=== PATIENT | female | born 1975 | race Caucasian/White ===

== ENCOUNTER 2016-10-16 06:13 | Inpatient (IN) | payer OTHER ==
[2016-10-14 10:52] LABS: MANUAL DIFF NEEDED? NO; URINE SOURCE VOIDED
[2016-10-14 12:01] LABS: BILIRUBIN URINE NEGATIVE (NEGATIVE); BLOOD URINE NEGATIVE (NEGATIVE); CLARITY SL. CLOUDY (CLEAR); COLOR YELLOW; GLUCOSE URINE NEGATIVE (NEGATIVE); LEUKOCYTES URINE 1+ (NEGATIVE); NITRITE URINE NEGATIVE (NEGATIVE); PROTEIN URINE TRACE mg/dL (NEGATIVE); URINE MICROSCOPIC NEEDED? YES; UROBILINOGEN URINE 4+(12 mg/dL)
[2016-10-14 12:30] LABS: URINE EPITHELIAL CELLS >10 /HPF (<10); URINE RBC <10 /HPF (<10)
[2016-10-14 12:51] LABS: BASO% 0.5 % (0.0-0.8); EOS# 0.11 X1000 (0.0-0.7); EOS% 1.4 % (0.0-10.0); HEMATOCRIT 41.9 % (37.0-47.0); HEMOGLOBIN 14.7 g/dL (12.0-16.0); IMM GRAN# 0.02 X1000 (0.0-0.04); IMM GRAN% 0.3 % (0.0-0.5); LYMPH# 2.11 X1000 (1.2-3.4); LYMPH% 26.7 % (20.5-51.1); MCH 32.5 PG (27-31); MCHC 35.1 g/dL (33-37); MCV 92.7 FL (81-99); MONO# 0.75 X1000 (0.11-0.59); MONO% 9.5 % (1.7-9.3); MPV 10.2 FL (7.4-10.4); NEUT% 61.6 % (42.2-75.2); PLT 248 X1000 (130-400); RBC 4.52 XMIL (4.2-5.4)
--- NOTE | 2016-10-15 10:34 | HISTORY AND PHYSICAL ---
ADMITTING PHYSICIAN: Jason Wright MD. ADMITTING DIAGNOSIS: Dysfunctional uterine bleeding with dysmenorrhea and menorrhagia. SUMMARY: Adriana Mayers is a 41-year-old, 5, para 4-0-1-4, who states she has menstrual cycles every 2 weeks. They are heavy and she passes clots. They will last 2 to 4 days and then stop. She states that they have always been irregular but her periods have become worse over the last 2 to 3 months. She is also having cramps with her periods. After discussing options with the patient, she is being admitted for a laparoscopic assisted vaginal hysterectomy. PAST MEDICAL HISTORY: Patient has had 4 vaginal deliveries. She has had abnormal Pap smears in the past and has had two LEEP procedures. She has had a tubal sterilization. Otherwise, there are no chronic medical or surgical illnesses. CURRENT MEDICATIONS: None. ALLERGIES: None. PHYSICAL EXAMINATION: VITAL SIGNS: Her weight is 104, blood pressure 110/70. CARDIOVASCULAR: Regular rate and rhythm. No murmurs, rubs, gallops. PULMONARY: Clear. BREASTS: No masses. ABDOMEN: Tender without rebound, rigidity, or guarding. PELVIC: Examination shows normal external genitalia. The uterus is slightly enlarged. There are no adnexal masses. EXTREMITIES: No clubbing, edema, or cyanosis. DIAGNOSTIC DATA: Most recent Pap smear was read as normal. IMPRESSION: Dysfunction uterine bleeding with dysmenorrhea and menorrhagia. PLAN: We will proceed with a laparoscopic assisted vaginal hysterectomy. Risks of the surgery including pain, bleeding, infection, bowel or bladder injury, and anesthesia complications have been discussed. Alternatives to this surgery including endometrial ablation have been discussed. I do not feel she is a candidate for control pills as she is 41 and a smoker. The patient's questions were answered and she freely consents to this operation.
[2016-10-16] MEDS ORDERED: VERSED ONE ×2 (06:30→09:47)
[2016-10-16] MEDS ORDERED: LR 1,000 ML ONE ×3 (06:30→10:52)
[2016-10-16] MEDS ORDERED: DIPRIVAN 1% ONE (06:30)
[2016-10-16] MEDS ORDERED: FENTANYL ONE (06:30)
[2016-10-16] MEDS ORDERED: LR 0 ML ONE ×2 (06:38→06:54)
[2016-10-16] MEDS ORDERED: PEPCID ONE (06:53)
[2016-10-16] MEDS ORDERED: REGLAN ONE (06:53)
[2016-10-16] MEDS ORDERED: SODIUM CHLORIDE 0.9% 10 ML ONE (06:54)
[2016-10-16] MEDS ORDERED: KEFZOL 1 GM/D5W 50 ML ONE (08:51)
[2016-10-16] MEDS ORDERED: SENSORCAINE 0.25%/EPI 1:200,000 ONE (08:51)
[2016-10-16] MEDS ORDERED: CLAVE SECONDARY SET 11953 ONE (08:51)
[2016-10-16 09:39] LABS: URINE MICROSCOPIC NEEDED? NO; URINE SOURCE CATH
[2016-10-16 09:45] LABS: BILIRUBIN URINE NEGATIVE (NEGATIVE); BLOOD URINE NEGATIVE (NEGATIVE); CLARITY CLEAR (CLEAR); COLOR YELLOW; GLUCOSE URINE NEGATIVE (NEGATIVE); LEUKOCYTES URINE NEGATIVE (NEGATIVE); NITRITE URINE NEGATIVE (NEGATIVE); PROTEIN URINE NEGATIVE (NEGATIVE); UROBILINOGEN URINE NORMAL
[2016-10-16] MEDS ORDERED: BREVIBLOC ONE (09:46)
[2016-10-16] MEDS ORDERED: NEO-SYNEPHRINE ONE (09:47)
[2016-10-16] MEDS ORDERED: DULCOLAX PR PRN (10:28)
[2016-10-16] MEDS ORDERED: ZOFRAN IV PRN ×2 (10:28→16:07)
[2016-10-16] MEDS ORDERED: AMBIEN PO PRN (10:28)
[2016-10-16] MEDS ORDERED: NORCO-10 PO PRN (10:28)
[2016-10-16] MEDS ORDERED: ZOFRAN ODT PO PRN (10:28)
[2016-10-16] MEDS ORDERED: FLEET ENEMA PR PRN (10:28)
[2016-10-16] MEDS ORDERED: LEVSIN-SL SL PRN (10:28)
[2016-10-16] MEDS ORDERED: NORCO-5 PO PRN (10:28)
[2016-10-16] MEDS ORDERED: DILAUDID PCA VIAL ONE (10:52)
[2016-10-16] MEDS: DILAUDID ONE ×2 (11:01→11:12)
--- NOTE | 2016-10-16 11:15 | OPERATIVE NOTE ---
PROCEDURE DATE: 10/16/2016 SURGEON: Jason Wright MD [employer] OPERATOR: Jason Velazquez MD ANESTHESIA: General endotracheal. OPERATION PERFORMED: Laparoscopic-assisted vaginal hysterectomy. PREOPERATIVE DIAGNOSIS: Dysfunctional uterine bleeding with dysmenorrhea and menorrhagia. POSTOPERATIVE DIAGNOSIS: Dysfunctional uterine bleeding with dysmenorrhea and menorrhagia. FINDINGS: Grossly normal anatomy. DESCRIPTION OF PROCEDURE: The patient was taken back to the operating room and, after general endotracheal anesthesia, placed in dorsal lithotomy position. The vagina, perineum, and abdomen were prepped and draped in the usual fashion. A Roman catheter was placed in the urinary bladder. A periumbilical incision was made. Through this, a Veress needle was inserted. A pneumoperitoneum was created. A laparoscopic trocar was introduced without difficulty. Initial laparoscopic examination revealed no apparent blood vessel or bowel injury. We then placed 5 mm ports in the left and right pelvis. The uterus was identified. We made the decision to remove the fallopian tube remnants. We used the Gyrus forceps to grasp, cauterize, and incise the distal portion of both fallopian tubes. We then began her surgery by grasping, cauterizing, and excising the round ligament and then the broad ligament on the left side. A bladder flap was created with the LigaSure device and the uterine vessels were cauterized. The same procedure was then repeated on the patient's right side, where 1st the round ligament and then broad ligament were grasped, cauterized, and excised with the LigaSure device. The bladder flap was further created and the uterine vessels on the right side were cauterized. We then removed all laparoscopic equipment and left the trocars in place. A weighted speculum was placed in the posterior vaginal vault. The cervix was grasped with a tenaculum. The anterior reflection of the vaginal mucosa was infiltrated with Xylocaine and epinephrine solution. Anterior colporrhaphy was performed. This was taken down to the endopelvic fascia and, using blunt and sharp dissection, the bladder was dissected off the lower uterine segment and cervix. The peritoneum was then entered. The fundus of the uterus was then flipped through the anterior colporrhaphy. The cardinal and uterosacral ligaments bilaterally were clamped, incised, and ligated. The posterior vaginal vault was clamped, excised, and ligated. The uterus and cervix were thus removed. Angle stitches were placed bilaterally. The cuff was then run using interlocking 0 Vicryl suture. The peritoneum was closed in a pursestring fashion. The vaginal cuff was reapproximated using interrupted Vicryl sutures. We regloved and then reestablished a pneumoperitoneum. Laparoscopic examination revealed no bleeding. All laparoscopic equipment was removed. The trocars were removed. The pneumoperitoneum was relieved. The laparoscopic incisions were oversewn using Vicryl suture and then infiltrated with 0.25% Marcaine. The patient was extubated and went to the recovery room in stable condition with estimated blood loss of 100 mL.
[2016-10-16] MEDS ORDERED: LASIX ONE (11:52)
[2016-10-16] MEDS ORDERED: DILAUDID PCA VIAL IV PRN (16:07)
[2016-10-16] MEDS ORDERED: NARCAN IV PRN (16:07)
[2016-10-16] MEDS: MYLICON PO SCH ×2 (16:13→20:22)
[2016-10-16] MEDS: TORADOL IV SCH ×2 (16:13→22:16)
[2016-10-16] MEDS: OFIRMEV 1000 MG/ISOTONIC SOLN 100 ML IV SCH (16:15)
[2016-10-16 16:16] LABS: HEMATOCRIT 38.6 % (37.0-47.0); HEMOGLOBIN 13.3 g/dL (12.0-16.0)
[2016-10-16] MEDS ORDERED: ZOFRAN ONE (17:21)
[2016-10-16] MEDS ORDERED: ZEMURON ONE (17:21)
[2016-10-16] MEDS ORDERED: NEOSTIGMINE ONE (17:21)
[2016-10-16] MEDS ORDERED: ROBINUL ONE (17:21)
[2016-10-16] MEDS ORDERED: DECADRON ONE (17:21)
[2016-10-16] MEDS ORDERED: QUELICIN (DOSE) ONE (17:21)
[2016-10-16] MEDS ORDERED: TORADOL ONE (17:21)
[2016-10-16] MEDS ORDERED: XYLOCAINE-MPF 2% ONE (17:21)
[2016-10-16] MEDS: LR 1,000 ML IV SCH (18:03)
[2016-10-16] MEDS: PERIDEX MT SCH (20:21)
[2016-10-16] MEDS: COLACE PO SCH (20:22)
[2016-10-17] MEDS: LR 1,000 ML IV SCH ×2 (01:44→01:45)
[2016-10-17] MEDS: OFIRMEV 1000 MG/ISOTONIC SOLN 100 ML IV SCH (01:46)
[2016-10-17] MEDS: MYLICON PO SCH ×4 (02:44→14:30)
[2016-10-17] MEDS: TORADOL IV SCH ×3 (04:44→14:30)
[2016-10-17 06:19] LABS: HEMATOCRIT 33.4 % (37.0-47.0); HEMOGLOBIN 11.6 g/dL (12.0-16.0); MCH 32.4 PG (27-31); MCHC 34.7 g/dL (33-37); MCV 93.3 FL (81-99); MPV 10.4 FL (7.4-10.4); RBC 3.58 XMIL (4.2-5.4)
[2016-10-17] MEDS: COLACE PO SCH ×2 (07:58→16:07)
[2016-10-17] MEDS: PERIDEX MT SCH (14:31)
[2016-10-17 16:06] VITALS: BP 122/76
--- NOTE | 2016-10-18 14:44 | DISCHARGE SUMMARY ---
ADMISSION DATE: 10/16/2016 DISCHARGE DATE: 10/17/2016 ADMITTING DIAGNOSIS: Dysfunctional uterine bleeding with dysmenorrhea and menorrhagia. PRINCIPAL DIAGNOSIS: Dysfunctional uterine bleeding with dysmenorrhea and menorrhagia. PRINCIPLE PROCEDURE: Laparoscopic assisted vaginal hysterectomy. SUMMARY: Adriana Mayers is a 41-year-old, 5, para 4-0-1-4 with heavy painful periods. Medical management failed to relieve her symptoms. She was therefore admitted to the hospital and underwent a laparoscopically assisted vaginal hysterectomy. There were no intraoperative complications. There were no grossly abnormal findings. Final pathology report is pending. Postoperatively, she did well and she has remained afebrile. All vital signs were stable. She had an admission hemoglobin and hematocrit of 14.7/41.9 with discharge hemoglobin and hematocrit being 11.6/33.4. On the day of discharge, cardiac and pulmonary examinations normal. Bowel and bladder function was normal. Incision was clean and dry. She is having scant vaginal bleeding. Ms. Mayers will be discharged today, and we will see her back in the office in a week. Routine discharge instructions, activity limitations, and precautions were discussed. She will continue her current home medications, and I have given prescriptions for Motrin and Champion 7.5 liquid form.
== END 2016-10-17 18:20 | disposition home or self-care (01) | DRG 743 ==
LOC: P.WC 06:13
PROVIDERS: ADMIT Obstetrics & Gynecology; ATTEND Obstetrics & Gynecology
PROC: 0UT7FZZ Resection of Bilateral Fallopian Tubes, Via Natural or Artificial Opening With Percutaneous Endoscopic Assistance (ICD-10-PCS; 2016-10-16)
PROC: 0UT9FZZ Resection of Uterus, Via Natural or Artificial Opening With Percutaneous Endoscopic Assistance (ICD-10-PCS; principal; 2016-10-16 09:06)
PROC: 0UTC7ZZ Resection of Cervix, Via Natural or Artificial Opening (ICD-10-PCS; 2016-10-16 09:06)
DX: N94.6 Dysmenorrhea, unspecified (principal); F17.210 Nicotine dependence, cigarettes, uncomplicated; N92.0 Excessive and frequent menstruation with regular cycle
CPT/HCPCS: 36415; 81001; 84703; 85014; 85018; 85025; 85027; 86850; 86900; 86901; 94799; J0330; J0690; J1100; J1170; J1885; J1940; J2250; J2370; J2405; J2765; J3010; J7120; J2710; S0028